=== PATIENT | female | born 1950 | race Caucasian/White ===

== ENCOUNTER → 2020-05-03 12:01 | Outpatient (BNVA) | payer MEDICARE, SELFPAY | PROVIDERS: Family Provider Nurse Practitioner Family; PCP Nurse Practitioner Family; Visit Provider Nurse Practitioner Family | DX: I10 Essential (primary) hypertension (principal); I25.10 Atherosclerotic heart disease of native coronary artery without angina pectoris; G47.00 Insomnia, unspecified; G25.81 Restless legs syndrome; L25.8 Unspecified contact dermatitis due to other agents; F51.04 Psychophysiologic insomnia | CPT/HCPCS: 80053; 80061; 84443; 85025 ==

== ENCOUNTER 2020-06-19 09:49 | Outpatient (CLI) | payer MEDICARE, SELFPAY ==
--- NOTE | 2020-06-19 09:56 | MM_ITS ---
WS: [id number] BILATERAL DIGITAL SCREENING MAMMOGRAPHY WITH CAD CLINICAL INFORMATION: SCREENING HISTORY: Screening mammogram. No current complaints. COMPARISON: TECHNIQUE: Bilateral CC and MLO views. FINDINGS: Scattered fibroglandular densities bilaterally. No suspicious focal mass, asymmetry, calcifications, or architectural distortion. No evidence of malignancy. Vascular calcification. MM/[place] [id number] IMPRESSION: BI-RADS: 2-Benign FOLLOW UP: 1 Year Follow-up Recommend return to annual screening mammography.
== END 2020-06-19 09:50 | disposition home or self-care (01) ==
LOC: RADSHAW 09:51
PROVIDERS: PCP Nurse Practitioner Family; Visit Provider Nurse Practitioner Family
DX: Z12.31 Encounter for screening mammogram for malignant neoplasm of breast (principal)
CPT/HCPCS: 77067

== ENCOUNTER → 2020-06-25 14:38 | Outpatient (BNVA) | payer MEDICARE, SELFPAY | PROVIDERS: PCP Nurse Practitioner Family; Visit Provider Nurse Practitioner Family | DX: N30.01 Acute cystitis with hematuria (principal); I10 Essential (primary) hypertension | CPT/HCPCS: 81003 ==

== ENCOUNTER → 2020-11-19 10:28 | Outpatient (BNVA) | payer MEDICARE, SELFPAY | PROVIDERS: PCP Nurse Practitioner Family; Visit Provider Nurse Practitioner Family | DX: I10 Essential (primary) hypertension (principal); I25.10 Atherosclerotic heart disease of native coronary artery without angina pectoris; J40 Bronchitis, not specified as acute or chronic; R05 Cough | CPT/HCPCS: 71046; 80053; 80061; 84443; 85025 ==

== ENCOUNTER → 2020-12-12 09:25 | Outpatient (BNVA) | payer MEDICARE, SELFPAY | PROVIDERS: PCP Nurse Practitioner Family; Visit Provider Nurse Practitioner Family | DX: R42 Dizziness and giddiness (principal) | CPT/HCPCS: 80053; 85025 ==

== ENCOUNTER 2021-07-25 07:44 | Outpatient (CLI) | payer MEDICARE, SELFPAY ==
--- NOTE | 2021-07-25 07:53 | MM_ITS ---
WS: [id number] BILATERAL SCREENING DIGITAL MAMMOGRAM WITH CAD HISTORY: SCREENING COMPARISON: 06/19/2020 and 06/12/2019 Bilateral CC and MLO views submitted. Computer aided detection analyzed. Breast composition: There are scattered areas of fibroglandular density. No suspicious masses, microc alcifications or architectural distortion. MM/[place] [id number] IMPRESSION: BI-RADS: 1-Negative FOLLOW UP: 1 Year Follow-up
== END 2021-07-25 07:45 | disposition home or self-care (01) ==
LOC: RADSHAW 07:50
PROVIDERS: PCP Nurse Practitioner Family; Visit Provider Nurse Practitioner Family
DX: Z12.31 Encounter for screening mammogram for malignant neoplasm of breast (principal)
CPT/HCPCS: 77067

== ENCOUNTER → 2021-08-12 11:19 | Outpatient (BNVA) | payer MEDICARE, SELFPAY | PROVIDERS: PCP Nurse Practitioner Family; Visit Provider Family Medicine | DX: N30.01 Acute cystitis with hematuria (principal); L23.7 Allergic contact dermatitis due to plants, except food | CPT/HCPCS: 81003 ==

== ENCOUNTER → 2021-10-01 11:05 | Outpatient (BNVA) | payer MEDICARE, SELFPAY | PROVIDERS: PCP Nurse Practitioner Family; Visit Provider Nurse Practitioner Family | DX: R05.9 Cough, unspecified (principal); J40 Bronchitis, not specified as acute or chronic | CPT/HCPCS: 80053 ==

== ENCOUNTER 2021-10-08 17:03 | Emergency (ER) | payer MEDICARE, SELFPAY ==
--- NOTE | 2021-10-08 17:19 | ECG_ITS ---
[facility] Test Date: 2021-10-08 Pat Name: Nellie Vazquez Department: Room: Gender: Female Gis Specialist: : 1950 Requested By: Gregory Salinas Order Number: [id number] Candy MD: Nasim Langley M.D. Measurements Intervals [place] Rate: 75 P: 62 UT: 147 QRS: 2 QRSD: 93 T: 41 QT: 369 QTc: 414 Interpretive Statements SINUS RHYTHM SEPTAL MYOCARDIAL INFARCTION , PROBABLY OLD [40+ ms Q WAVE IN V1/V2] Compared to ECG 11/10/2018 05:52:47 No significant changes Electronically Signed On 10-09-2021 9:09:06 SYSTEM ADMINISTRATION ADVISOR by Nasim Langley M.D. [email or web address] specialty [email or web address]/store/[id number]
[2021-10-08 17:21] VITALS: BP 178/92; PULSE 84; RESP 18; TEMP 37.1; O2SAT 93; BMI 25.9
[2021-10-08 19:16] LABS: Basophils # 0.1 10^3/uL (0.0-0.1); Basophils % 0.4 %; Eosinophils # 0.3 10^3/uL (0.0-0.8); Eosinophils % 2.1 %; Hematocrit 38.1 % (37.0-47.0); Hemoglobin 11.7 g/dL (11.5-15.3); Lymphocytes # 3.1 10^3/uL (0.8-4.8); Lymphocytes % 20.5 %; Mean Corpuscular HGB Conc 30.7 g/dL (30.0-36.0); Mean Corpuscular Hemoglobin 25.1 pg (28.0-34.0); Mean Corpuscular Volume 81.8 fl (81-99); Mean Platelet Volume 10.2 fL (7.4-10.4); Monocytes # 1.2 10^3/uL (0.2-0.9); Monocytes % 8.1 %; Neutrophils # 10.34 10^3/uL (1.8-7.7); Neutrophils % 68.4 %; Nucleated Red Blood Cells % 0 %; Platelet Count 393 10^3/cmm (130-400); Red Blood Count 4.66 10^6/uL (4.1-5.3); Red Cell Distribution Width 18.7 % (12.1-15.1); White Blood Count 15.1 10^3/uL (4.0-10.0)
[2021-10-08 19:47] LABS: Alanine Aminotransferase 34 U/L (0-33); Albumin Level 3.9 g/dL (3.5-5.2); Alkaline Phosphatase 109 IU/L (35-105); Anion Gap 18.6 (5-19); Aspartate Amino Transferase 29 U/L (0-32); Blood Urea Nitrogen 30 mg/dL (8-23); Calcium 9.3 mg/dL (8.5-10.5); Carbon Dioxide 21 mmol/L (22-29); Chloride 102 mmol/L (98-107); Globulin 4.3 g/dL (1.3-4.6); Glucose 139 mg/dL (65-115); Magnesium 1.8 mg/dL (1.7-2.3); Osmolality Calculated 294 mOsm/kg (285-295); Potassium 3.6 mmol/L (3.5-5.1); Sodium 138 mmol/L (136-145); Total Bilirubin 0.3 mg/dL (0.15-1.2); Total Protein 8.2 g/dL (6.6-8.7)
--- NOTE | 2021-10-08 19:56 | ECG_ITS ---
[facility] Test Date: 2021-10-08 Pat Name: Nellie Vazquez Department: Room: Gender: Female Lubricating Specialist: : 1950 Requested By: Daniel Marcos Order Number: [id number] Candy MD: Nasim Langley M.D. Measurements Intervals [place] Rate: 76 P: 39 NM: 140 QRS: 1 QRSD: 96 T: 41 QT: 381 QTc: 428 Interpretive Statements SINUS RHYTHM MINIMAL VOLTAGE CRITERIA FOR LVH, CONSIDER NORMAL VARIANT [MEETS CRITERIA IN ONE OF: R(aVL), S(V1), R(V5), R(V5/V6)+S(V1)] Compared to ECG 10/08/2021 17:31:48 Myocardial infarct finding no longer present Electronically Signed On 10-09-2021 8:45:48 APPRENTICESHIP CONSULTANT by Nasim Langley M.D. [email or web address] systemOX MEDIAupper valley medical center.Recovr/store/OM/[id number]
--- NOTE | 2021-10-08 19:56 | XRR_ITS ---
PROCEDURE INFORMATION: Exam: XR Chest Exam date and time: 10/08/2021 7:56 PM Age: 71 years old Clinical indication: Shortness of breath; Prior surgery; Surgery date: 6+ months; Surgery type: Stint; Additional info: SOB TECHNIQUE: Imaging protocol: XR of the chest. Views: 1 view. Total images: 1 COMPARISON: CR XR chest 2V* [id number] 11/19/2020 10:50 AM FINDINGS: Lungs: Small patches of bibasilar ground-glass interstitial lung disease raising suspicion for active interstitial pneumonitis. In today's environment consideration might be given to early Covid-19 pneumonitis. Pleural spaces: No pleural effusion. No pneumothorax. Heart/Mediastinum: Cardiac structures and configuration unremarkable for age. Bones/joints: Unremarkable. XR/XR chest 1V portable [id number] IMPRESSION: Small patches of bibasilar ground-glass interstitial lung disease raising suspicion for active interstitial pneumonitis. In today's environment consideration might be given to early Covid-19 pneumonitis.
--- NOTE | 2021-10-08 20:34 | ED_ITS ---
HPI - Arrhythmia/Palpitations General: Chief Complaint: Arrhythmia/Palpitations Stated Complaint: ABNORMAL HEART RHYTHMS Time Seen by Provider: 10/08/21 19:55 Source: patient Mode of arrival: ambulatory Limitations: no limitations History of Present Illness: HPI narrative: 71-year-old female that states over the last 2 days she has been having increasing dyspnea along with palpitations with exertion she had some slight chest pain as well she never had any history of this really done EKG at the PCP clinic she had some PVCs no other abnormal findings her heart rate here is in the 70s pulse ox 96% on room air she has had no vomiting no diarrhea she has had a slight cough and body aches as well. Associated symptoms: Deny nausea or vomiting Review of Systems Const: Denies: fever(s), chills, body aches or change in appetite Eyes: Denies: blurry vision or eye discomfort ENMT: Denies: throat pain or dental pain Card: Reports: chest pain and palpitations Resp: Reports: dyspnea GI: Denies: abdominal pain, nausea, vomiting or diarrhea : Denies: dysuria Musc: Denies: neck pain or back pain Skin/Breast: Denies: rash Neuro: Denies: headache(s) Psych: Denies: depression Russell/Lymph: Denies: easy bruising All/Imm: Denies: urticaria PFSH ED PFSH: Medical History (Updated 10/08/21 @ 22:27 by Daniel Marcos MD) Actinic keratosis CAD (coronary artery disease) SÁNCHEZ (generalized anxiety disorder) History of WI (myocardial infarction) Hypertension Insomnia Restless leg Social History Smoking and tobacco status: former smoker Quit status (tobacco): has quit using tobacco Second hand smoke exposure: No Alcohol intake: never Caregiver/support person: Yes (spouse) Lives independently: Yes Household members: spouse Marital status: service: No Current occupational status: retired History of recent travel: No Current gender identity: Female Special cady needs: No Agree to transfusion: Yes Physical Exam Const: COMMON NORMALS: no acute distress, patient oriented x3 and healthy appearing HENMT: COMMON NORMALS: normocephalic and atraumatic HEAD & SCALP: normoce phalic and atraumatic Eye: COMMON NORMALS: Equal, round and reactive pupils present and EOMs intact bilaterally PUPIL: Yes Equal, round and reactive pupils present Neck/C-Spine: COMMON NORMALS: full ROM and supple Chest: COMMONS NORMALS: normal inspection of the chest and normal palpation of entire chest wall Resp: COMMON NORMALS: normal respiratory effort, No retractions, No use of accessory muscles and clear to auscultation bilaterally AUSCULTATION: clear to auscultation bilaterally Cardio: COMMON NORMALS: regular rate, regular rhythm and No murmurs present (Cardio) RATE: regular rate RHYTHM: regular rhythm GI: COMMON NORMALS: Normal to inspection, nondistended, normoactive bowel sounds present, Soft to palpation, non-tender and no masses PALPATION: Yes Soft to palpation Extremity: COMMON NORMALS: normal to inspection and full ROM Neuro: COMMON NORMALS: patient oriented x3, moves all extremities and no focal motor deficits Psych: COMMON NORMALS: mental status grossly normal, Normal thought process present and cooperative THOUGHT PROCESS: Normal thought process present Skin: COMMON NORMALS: no rashes or lesions noted and no wounds GENERAL SKIN EXAM: no rashes or lesions noted Course Vital Signs: Vital signs: Vital Signs Temperature 98.7 F 10/08/21 17:21 Pulse Rate 86 10/08/21 22:52 Respiratory Rate 23 H 10/08/21 22:52 Blood Pressure 189/77 10/08/21 22:52 Pulse Oximetry 95 10/08/21 22:52 MDM - Arrhythmia/Palpitations MDM Narrative: Medical decision making narrative: Patient presents here with shortness of breath with cough CT shows bilateral lower lobe pneumonia she does have an elevated white count as well her pulse ox here has been in the mid 90s did offer her admission and she gets more symptomatic with exertion but she like to try oral antibiotics first. Her Covid antigen is negative but will send a Covid PCR and follow she is return if she has any worsening she understands and agrees to plan. Lab Data: Labs: Lab Results 10/08/21 10/08/21 10/08/21 19:08 19:08 19:08 WBC 15.1 10^3/uL H 10 ^3/uL (4.0-10.0) RBC 4.66 10^6/uL 10^6 /uL (4.1-5.3) Hgb 11.7 g/dL g/dL (11.5-15.3) Hct 38.1 % % (37.0-47.0) MCV 81.8 fl fl (81-99) MCH 25.1 pg L pg (28.0-34.0) MCHC 30.7 g/dL g/dL (30.0-36.0) RDW 18.7 % H % (12.1-15.1) Plt Count 393 10^3/cmm 10^3 /cmm (130-400) MPV 10.2 fL fL (7.4-10.4) Neut % (Auto) 68.4 % % Lymph % (Auto) 20.5 % % [place] % (Auto) 8.1 % % Eos % (Auto) 2.1 % % Baso % (Auto) 0.4 % % Neut # (Auto) 10.34 10^3/uL H 1 0^3/uL (1.8-7.7) Lymph # (Auto) 3.1 10^3/uL 10^3/ uL (0.8-4.8) [place] # (Auto) 1.2 10^3/uL H 10^ 3/uL (0.2-0.9) Eos # (Auto) 0.3 10^3/uL 10^3/ uL (0.0-0.8) Baso # (Auto) 0.1 10^3/uL 10^3/ uL (0.0-0.1) Nucleated RBC % (a uto) 0 % % Nucleated RBCs # 0.0 /100WBC /100W BC PT INR D-Dimer Sodium 138 mmol/L mmol/L (136-145) Potassium 3.6 mmol/L mmol/L (3.5-5.1) Chloride 102 mmol/L mmol/L (98-107) Carbon Dioxide 21 mmol/L L mmol/ L (22-29) Anion Gap 18.6 (5-19) BUN 30 mg/dL H mg/dL (8-23) Creatinine 1.0 mg/dL H mg/dL (0.5-0.9) GFR Calculation Not Reportable Glucose 139 mg/dL H mg/dL (65-115) Calculated Osmolal ity 294 mOsm/kg mOsm/ kg (285-295) Calcium 9.3 mg/dL mg/dL (8.5-10.5) Magnesium 1.8 mg/dL mg/dL (1.7-2.3) Total Bilirubin 0.3 mg/dL mg/dL (0.15-1.2) AST 29 U/L U/L (0-32) ALT 34 U/L H U/L (0-33) Alkaline Phosphata se 109 IU/L H IU/L (35-105) Troponin T Baselin e 11 ng/L H ng/L (0-10) Troponin T 120 Min viejas Delta Troponin T Total Protein 8.2 g/dL g/dL (6.6-8.7) Albumin 3.9 g/dL g/dL (3.5-5.2) Globulin 4.3 g/dL g/dL (1.3-4.6) TSH 2.00 uIU/mL uIU/m L (0.27-4.20) SARS-CoV-2 Ag (Rap id) 10/08/21 10/08/21 10/08/21 20:41 21:04 21:10 WBC RBC Hgb Hct MCV MCH MCHC RDW Plt Count MPV Neut % (Auto) Lymph % (Auto) [place] % (Auto) Eos % (Auto) Baso % (Auto) Neut # (Auto) Lymph # (Auto) [place] # (Auto) Eos # (Auto) Baso # (Auto) Nucleated RBC % (a uto) Nucleated RBCs # PT 14.40 SECONDS SEC ONDS (12.1-14.9) INR 1.09 (0.8-1.2) D-Dimer 2.30 ug/mIFEU H u g/mIFEU (0-0.59) Sodium Potassium Chloride Carbon Dioxide Anion Gap BUN Creatinine GFR Calculation Glucose Calculated Osmolal ity Calcium Magnesium Total Bilirubin AST ALT Alkaline Phosphata se Troponin T Baselin e Troponin T 120 Min [place] 11.29 ng/L H ng/L (0-10) Delta Troponin T 0.29 ABS# ABS# (0-10) Total Protein Albumin Globulin TSH SARS-CoV-2 Ag (Rap id) Negative (Negative) Imaging Data^: CXR: Attestation: I personally reviewed and interpreted this imaging study as follows: Radiologist's impression: [address] [place] [address], [place] [address] XRay Report Signed Patient: Nellie Vazquez Unit #: [id number] : 1950 Age/Sex: 71 / F ADM Date: 10/08/21 Loc: ER Room/Bed: Attending Dr: Ordering Provider/Ordering MD: Daniel Marcos MD Date of Service: 10/08/21 Procedure(s): XR chest 1V portable [id number] Accession Number(s): [id number] Report Number: [id number] PROCEDURE INFORMATION: Exam: XR Chest Exam date and time: 10/08/2021 7:56 PM Age: 71 years old Clinical indication: Shortness of breath; Prior surgery; Surgery date: 6+ months; Surgery type: Stint; Additional info: SOB TECHNIQUE: Imaging protocol: XR of the chest. Views: 1 view. Total images: 1 COMPARISON: CR XR chest 2V* [id number] 11/19/2020 10:50 AM FINDINGS: Lungs: Small patches of bibasilar ground-glass interstitial lung disease raising suspicion for active interstitial pneumonitis. In today's environment consideration might be given to early Covid-19 pneumonitis. Pleural spaces: No pleural effusion. No pneumothorax. Heart/Mediastinum: Cardiac structures and configuration unremarkable for age. Bones/joints: Unremarkable. XR/XR chest 1V portable [id number] IMPRESSION: Small patches of bibasilar ground-glass interstitial lung disease raising suspicion for active interstitial pneumonitis. In today's environment consideration might be given to early Covid-19 pneumonitis. Dictated By: Layo Asif Signed By: Layo Asif Signed Date/Time: 10/08/212131 DD/ 55 CT Chest: Attestation: I personally reviewed and interpreted this imaging study as follows: Radiologist's impression: [address] [address] [address] Scan Report Signed Patient: Nellie Vazquez Unit #: [id number] : 1950 Acc t#:[id number] Age/Sex: 71 / F ADM Date: 10/08/21 Loc: ER Room/Bed: Attending Dr: Ordering Provider/Ordering MD: Daniel Marcos MD Date of Service: 10/08/21 Procedure(s): CT angio chest PE protcl [id number] Accession Number(s): [id number] Report Number: [id number] PROCEDURE INFORMATION: Exam: CTA Chest With Contrast Exam date and time: 10/08/2021 9:28 PM Age: 71 years old Clinical indication: Abnormal findings; Abnormal diagnostic tests; Elevated d-dimer; Patient HX: Dyspnea with elevated d dimer. History of cad. ; Additional info: SOB TECHNIQUE: Imaging protocol: Computed tomographic angiography of the chest with contrast. 3D rendering (Not supervised by radiologist): MIP and/or 3D reconstructed images were created by the technologist. Total images: 853 Radiation optimization: All CT scans at this facility use at least one of these dose optimization techniques: automated exposure control; mA and/or kV adjustment per patient size (includes targeted exams where dose is matched to clinical indication); or iterative reconstruction. Contrast material: VISI 320; Contrast volume: 73 ml; Contrast route: INTRAVENOUS (IV); COMPARISON: CR (CHEST, ) 10/08/2021 8:37 PM RADIATION DOSE METRICS: Total DLP (mGy-cm): 585.52 FINDINGS: Pulmonary arteries: No visible evidence of pulmonary embolism/pulmonary arterial thrombus. Aorta: Very minimal fusiform aneurysmal dilatation of the thoracic aortic arch at 36 mm in maximum AP diameter. The remainder of the thoracic aorta is nonaneurysmal. No intimal flap or dissection. Mild arterial sclerotic disease. Lungs: Bilateral, predominantly peripheral, patches of ground-glass interstitial lung disease opacification consistent with active interstitial pneumonitis. Overall constellation of findings would be consistent with Covid-19 pneumonitis. Pleural spaces: Unremarkable. No pneumothorax. No pleural effusion. Heart: Cardiac size within normal limits. Left ventricular prominence. No visible pericardial effusion. Coronary artery disease primarily of the LAD. LAD stent. Lymph nodes: Prominent mediastinal and to a less significant degree hilar lymph nodes. Dominant aortopulmonic lymph node measures 14 mm in the short axis. Suspect reactive in nature. Bones/joints: No visible acute osseous abnormality. Soft tissues: Unremarkable. CT/[place] ang[place] prot [id number] IMPRESSION: 1. No visible evidence of pulmonary embolism/pulmonary arterial thrombus. 2. Bilateral, predominantly peripheral, patches of ground-glass interstitial lung disease opacification consistent with active interstitial pneumonitis. Overall constellation of findings would be consistent with Covid-19 pneumonitis. 3. Very minimal fusiform aneurysmal dilatation of the thoracic aortic arch. 4. Prominent mediastinal and hilar lymph nodes most likely reactive in nature. 5. Coronary artery disease. Dictated By: Layo Asif Signed By: Layo Asif Signed Date/Time: 10/08/212219 DD/ 27 EKG Data^: EKG 1: Attestation: I personally reviewed and interpreted this EKG as follows: EKG interpretation date: 10/08/21 EKG interpretation time: 17:31 Interpretation: nsr hr [address] or t wave abnormalities qrs 93 qtc 414 Other EKG comments: Chest X-Ray 10/08/21 19:56 IMPRESSION: Small patches of bibasilar ground-glass interstitial lung disease raising suspicion for active interstitial pneumonitis. In today's environment consideration might be given to early Covid-19 pneumonitis. Chest CTA 10/08/21 21:28 IMPRESSION: 1. No visible evidence of pulmonary embolism/pulmonary arterial thrombus. 2. Bilateral, predominantly peripheral, patches of ground-glass interstitial lung disease opacification consistent with active interstitial pneumonitis. Overall constellation of findings would be consistent with Covid-19 pneumonitis. 3. Very minimal fusiform aneurysmal dilatation of the thoracic aortic arch. 4. Prominent mediastinal and hilar lymph nodes most likely reactive in nature. 5. Coronary artery disease. EKG 2: Attestation: I personally reviewed and interpreted this EKG as follows: EKG interpretation date: 10/08/21 EKG interpretation time: 20:48 Interpretation: nsr hr [address] or t wave abnormalities qrs 96 qtc 411 Other EKG comments: Chest X-Ray 10/08/21 19:56 IMPRESSION: Small patches of bibasilar ground-glass interstitial lung disease raising suspicion for active interstitial pneumonitis. In today's environment consideration might be given to early Covid-19 pneumonitis. Chest CTA 10/08/21 21:28 IMPRESSION: 1. No visible evidence of pulmonary embolism/pulmonary arterial thrombus. 2. Bilateral, predominantly peripheral, patches of ground-glass interstitial lung disease opacification consistent with active interstitial pneumonitis. Overall constellation of findings would be consistent with Covid-19 pneumonitis. 3. Very minimal fusiform aneurysmal dilatation of the thoracic aortic arch. 4. Prominent mediastinal and hilar lymph nodes most likely reactive in nature. 5. Coronary artery disease. Discharge Plan Discharge Patient Disposition: Home Clinical Impression: Pneumonia Qualifiers: Pneumonia type: due to unspecified organism Laterality: bilateral Lung location: lower lobe of lung Qualified Code(s): J18.9 - Pneumonia, unspecified organism Condition: Stable Prescriptions: New levofloxacin 750 mg tablet 750 mg PO DAILY 5 Days RF: 0 No Action cholecalciferol (vitamin D3) 25 mcg (1,000 unit) capsule 25 mcg PO DAILY RF: 0 biotin 5 mg capsule 5 mg PO DAILY RF: 0 phenazopyridine [Pyridium] 100 mg tablet 100 mg PO TID Qty: 20 RF: 0 triamcinolone acetonide 0.1 % cream 1 applic topical BID Qty: 30 RF: 0 Flovent HFA 110 mcg/actuation HFA aerosol inhaler 1 puff inhalation BID Qty: 12 RF: 0 fluticasone propionate [Flonase Allergy Relief] 50 mcg/actuation spray,suspension 2 spray intranasal DAILY Qty: 16 RF: 0 cetirizine [Zyrtec] 10 mg tablet 10 mg PO DAILY PRN (Reason: allergy symptoms) Qty: 30 RF: 2 betamethasone dipropionate 0.05 % ointment 1 applic TOPICAL DAILY Qty: 15 RF: 2 lisinopril 10 mg tablet 10 mg PO DAILY Qty: 90 RF: 0 amitriptyline 150 mg tablet 150 mg PO QDAY Qty: 30 RF: 2 carvedilol 25 mg tablet 25 mg PO BID Qty: 60 RF: 2 clopidogrel [Plavix] 75 mg tablet 75 mg PO DAILY Qty: 30 RF: 2 ropinirole 0.5 mg tablet 0.5 mg PO DAILY Qty: 90 RF: 0 benzonatate [Tessalon Perles] 100 mg capsule 100 mg PO BID PRN (Reason: cough) Qty: 30 RF: 0 Discharge Orders: Discharge ED (Routine); Ordered 10/08/21 Ordered By: Daniel Marcos Referrals: Danna Dong FNP [Primary Care Provider] - 1-3 days Discharge Diet: Advance as tolerated Discharge Activity: Resume usual activity Patient Instructions: Pneumonia (ED) Coding Level of Care Code ED Video And Sound Recorder for [facility] Fwd Exam Comprehensive
[2021-10-08 21:04] LABS: Troponin(5th) Baseline 11 ng/L (0-10)
[2021-10-08 21:23] LABS: Troponin 5 2HR 11.29 ng/L (0-10); Troponin 5 2HR Delta 0.29 ABS# (0-10)
[2021-10-08 21:23] LABS: INR 1.09 (0.8-1.2)
[2021-10-08 21:24] VITALS: BP 169/103; PULSE 75; RESP 20; O2SAT 94
--- NOTE | 2021-10-08 21:28 | CTR_ITS ---
PROCEDURE INFORMATION: Exam: CTA Chest With Contrast Exam date and time: 10/08/2021 9:28 PM Age: 71 years old Clinical indication: Abnormal findings; Abnormal diagnostic tests; Elevated d-dimer; Patient HX: Dyspnea with elevated d dimer. History of cad. ; Additional info: SOB TECHNIQUE: Imaging protocol: Computed tomographic angiography of the chest with contrast. 3D rendering (Not supervised by radiologist): MIP and/or 3D reconstructed images were created by the technologist. Total images: 853 Radiation optimization: All CT scans at this facility use at least one of these dose optimization techniques: automated exposure control; mA and/or kV adjustment per patient size (includes targeted exams where dose is matched to clinical indication); or iterative reconstruction. Contrast material: VISI 320; Contrast volume: 73 ml; Contrast route: INTRAVENOUS (IV); COMPARISON: CR (CHEST, ) 10/08/2021 8:37 PM RADIATION DOSE METRICS: Total DLP (mGy-cm): 585.52 FINDINGS: Pulmonary arteries: No visible evidence of pulmonary embolism/pulmonary arterial thrombus. Aorta: Very minimal fusiform aneurysmal dilatation of the thoracic aortic arch at 36 mm in maximum AP diameter. The remainder of the thoracic aorta is nonaneurysmal. No intimal flap or dissection. Mild arterial sclerotic disease. Lungs: Bilateral, predominantly peripheral, patches of ground-glass interstitial lung disease opacification consistent with active interstitial pneumonitis. Overall constellation of findings would be consistent with Covid-19 pneumonitis. Pleural spaces: Unremarkable. No pneumothorax. No pleural effusion. Heart: Cardiac size within normal limits. Left ventricular prominence. No visible pericardial effusion. Coronary artery disease primarily of the LAD. LAD stent. Lymph nodes: Prominent mediastinal and to a less significant degree hilar lymph nodes. Dominant aortopulmonic lymph node measures 14 mm in the short axis. Suspect reactive in nature. Bones/joints: No visible acute osseous abnormality. Soft tissues: Unremarkable. CT/CT angio chest PE protcl [id number] IMPRESSION: 1. No visible evidence of pulmonary embolism/pulmonary arterial thrombus. 2. Bilateral, predominantly peripheral, patches of ground-glass interstitial lung disease opacification consistent with active interstitial pneumonitis. Overall constellation of findings would be consistent with Covid-19 pneumonitis. 3. Very minimal fusiform aneurysmal dilatation of the thoracic aortic arch. 4. Prominent mediastinal and hilar lymph nodes most likely reactive in nature. 5. Coronary artery disease.
[2021-10-08 21:30] VITALS: BP 156/92; PULSE 76; RESP 19; O2SAT 93
[2021-10-08 21:47] LABS: SARS Covid-2 Antigen Negative (Negative)
--- NOTE | 2021-10-08 21:56 | ECG_ITS ---
[facility] Test Date: 2021-10-08 Pat Name: Nellie Vazquez Department: Room: Gender: Female Skilled Nursing Facility Counselor: : 1950 Requested By: Daniel Marcos Order Number: [id number] Candy MD: Nasim Langley M.D. Measurements Intervals [place] Rate: 75 P: 51 SD: 148 QRS: 8 QRSD: 97 T: 37 QT: 390 QTc: 436 Interpretive Statements SINUS RHYTHM Compared to ECG 10/08/2021 20:48:15 No significant changes Electronically Signed On 10-09-2021 8:54:30 AUTOMOTIVE FUEL SYSTEMS CONVERTER by Nasim Langley M.D. [email or web address] [email or web address].[employer]/store/OM/[id number]
[2021-10-08] MEDS: iodixanol 320 mg/mL 100mL Btl IV (22:02)
[2021-10-08 22:30] VITALS: BP 189/77; PULSE 86; RESP 23; O2SAT 95
[2021-10-08] MEDS: levoFLOXacin 750 mg Tablet PO (22:48)
[2021-10-08 22:52] VITALS: BP 189/77; PULSE 86; RESP 23; O2SAT 95
[2021-10-09 00:30] LABS: Adenovirus Not Detected (NOT DETECT); Chlamydia Pneumoniae Not Detected (NOT DETECT); Coronavirus 229E,HKU1,NL63,OC4 Not Detected (NOT DETECT); Human Metapneumovirus Not Detected (NOT DETECT); Human Rhinovirus/Enterovirus Not Detected (NOT DETECT); Influenza A Not Detected (NOT DETECT); Influenza A H1 Not Detected (NOT DETECT); Influenza A H1-2009 Not Detected (NOT DETECT); Influenza A H3 Not Detected (NOT DETECT); Influenza B Not Detected (NOT DETECT); Mycoplasma Pneumoniae Not Detected (NOT DETECT); Parainfluenza Virus Type 1 Not Detected (NOT DETECT); Parainfluenza Virus Type 2 Not Detected (NOT DETECT); Parainfluenza Virus Type 3 Not Detected (NOT DETECT); Parainfluenza Virus Type 4 Not Detected (NOT DETECT); Respiratory Syncytial Virus A Not Detected (NOT DETECT); Respiratory Syncytial Virus B Not Detected (NOT DETECT); SARS-COV-2 Detected (NOT DETECT)
--- NOTE | 2021-10-09 09:15 | DCPLANNER ---
nightclub manager was asked to fax outpatient order for MCA infusion to centralized scheduling. nightclub manager faxed signed order to centralized scheduling, who will call patient with appointment information.
== END 2021-10-08 22:45 | disposition home or self-care (01) ==
PROVIDERS: Emergency Medicine; Emergency Provider Emergency Medicine; PCP Nurse Practitioner Family
DX: U07.1 COVID-19 (principal); J18.9 Pneumonia, unspecified organism; Z79.02 Long term (current) use of antithrombotics/antiplatelets; I25.10 Atherosclerotic heart disease of native coronary artery without angina pectoris; I25.2 Old myocardial infarction; I10 Essential (primary) hypertension; Z87.891 Personal history of nicotine dependence
CPT/HCPCS: 36415; 71045; 71275; 80053; 83735; 84443; 84484; 85025; 85378; 85610; 87426; 87635; 93005; 99284; Q9967

== ENCOUNTER → 2022-02-09 09:44 | Outpatient (BNVA) | payer MEDICARE, SELFPAY | PROVIDERS: PCP Nurse Practitioner Family; Visit Provider Nurse Practitioner Family | DX: G25.81 Restless legs syndrome (principal); R05.9 Cough, unspecified; F51.04 Psychophysiologic insomnia; I10 Essential (primary) hypertension; R73.9 Hyperglycemia, unspecified; E55.9 Vitamin D deficiency, unspecified | CPT/HCPCS: 71046; 80053; 80061; 82306; 82607; 83036; 83735; 84443; 85025 ==